=== PATIENT | female | born 1985 | race Caucasian/White ===

== ENCOUNTER 2023-06-26 07:47 | Outpatient (AMB) | payer OTHER, SELFPAY ==
[2023-06-26 08:09] VITALS: BP 110/72; PULSE 64; O2SAT 100; BMI 24.4
--- NOTE | 2023-06-26 08:09 | A.OFFPC_ITS ---
Vital Signs 06/26/23 08:09 Height 5 ft 4 in Weight 142 lb BMI 24.4 BP 110/72 Blood Pressure Location Rt brachial Position Sitting Pulse 64 Pulse Source Pulse Oximeter Pulse Oximetry (%) 100 Oxygen Delivery Method Room Air Intake Visit Reasons: Annual PE Intake Note: Pt is here for her Annual PE Pt is due for her Pap she has them done at [facility] [address] Is last menstrual period known: Yes Last menstrual period: 06/07/23 Allergies Blue #1 Dye Allergy (Unknown, Uncoded 06/26/23 08:23) rash lanolin Allergy (Unknown, Uncoded 06/26/23 08:23) rash Medication List - Last Reconciled 06/26/23 by Millie Gonzalez MD cetirizine (Zyrtec) 10 mg PO DAILY PRN cholecalciferol (vitamin D3) 50 mcg PO DAILY cranberry 500 mg PO BID docusate sodium (Colace) 100 mg PO DAILY levonorgestrel (Mirena) intrauterine linaclotide (Linzess) 290 mcg PO DAILY magnesium oxide 500 mg PO DAILY montelukast 10 mg PO DAILY Saccharomyces boulardii (Daily Probiotic (S. boulardii)) 250 mg PO BID Tobacco use date assessed: 06/26/23 Dental Screening Dental Screen Date: 06/26/23 Did you have a dental visit in the last 12 months?: Yes Did you have a dental problem in the last 6 months where you did not have access to dental care?: No Was dental information given to patient?: Patient has dentist HPI Annual PE HPI Details 38-year-old lady here today for physical exam. She gets her cervical cancer screening done at [facility], due again this year, and has an appointment already scheduled. She had a colonoscopy done in [address] Cooper due to chronic idiopathic constipation and was found to have a tubular adenoma, due for repeat check again in 2026. She started having her screening mammogram at age 34 due to family history of breast cancer, maternal aunt had it before age 50., gets her screening mammogram at [facility]. She is up-to-date with all her vaccinations except for day tetanus booster which she had in 2010. [facility] Medical History (Updated 06/26/23 @ 08:37 by Millie Gonzalez MD) History of adenomatous polyp of colon Irritable bowel syndrome with constipation Constipation Seasonal allergies Surgical History Hx of colonoscopy History of cystoscopy Hx of inguinal herniorrhaphy Family History Paternal Grandmother Breast cancer Paternal Aunt Breast cancer, Onset Age: 50 Maternal Aunt Breast cancer Social History Housing: House Patient Tobacco Use Status: Never used Tobacco e-Cigarette/Vaping Use: Never Used service: No Current occupational status: employed Cognitive needs: No Hearing needs: No Vision needs: No Female Reproductive History Menstrual Age of Menarche: 12 Date of last menstrual period: 06/07/23 Questionnaire PHQ-9 Over the last 2 weeks, how often have you been bothered by any of the following problems? 1. Little interest or pleasure in doing things: not at all 2. Feeling down, depressed, or hopeless: not at all 3. Trouble falling or staying asleep, or sleeping too much: not at all 4. Feeling tired or having little energy: several days 5. Poor appetite or overeating: not at all 6. Feeling bad about yourself - or that you are a failure or have let yourself or your family down: not at all 7. Trouble concentrating on things, such as reading the newspaper or watching television: not at all 8. Moving or speaking so slowly that other people could have noticed. Or the opposite - being so fidgety or restless that you have been moving around a lot more than usual: not at all 9. Thoughts that you would be better off or of hurting yourself in some way: not at all Total score: 1 Depression Screening Interpretation: Negative Depression Screening Done: Yes 20636 - PHQ-9 Billing: Yes Source: Developed by Drs. Zion Nickerson, Samantha Roberts, Dustin Heaton and colleagues, with an educational miguelangel from [employer]. Thrive Questionnaire Date Thrive assessed: 06/26/23 I am a: Patient What is your living situation today?: I have a steady place to live Within the past 12 months, did the food you bought not last and you didn't have the money to get more?: Never true Within the past 12 months, did you worry whether your food would run out before you got money to buy more?: Never true Do you have trouble paying for medicines?: No Do you have trouble getting transportation to medical appointments?: No Do you have trouble paying your heating and electricity bill?: No Do you have trouble taking care of your child, family member or friend?: No Do you have trouble with day-to-day activities such as bathing, preparing meals, shopping, managing finances, etc.?: No Are you currently unemployed and looking for a job?: No Are you interested in more education?: No AUDIT C Alcohol Use Questionnaire (AUDIT-C) 1. How often do you have a drink containing alcohol?: Monthly or less 2. How many drinks containing alcohol do you have on a typical day when you are drinking?: 1 or 2 3. How often do you have six or more drinks on one occasion?: Never Total Score: 1 ANTONI-7 AMB Questionnaire ANTONI-7 Date ANTONI - 7 assessed: 06/26/23 Feeling nervous, anxious, or on edge: 0 = Not at all Not being able to stop or control worryin = Not at all Worrying too much about different things: 0 = Not at all Trouble relaxin = Not at all Being so restless that it is hard to sit still: 0 = Not at all Becoming easily annoyed or irritable: 0 = Not at all Feeling afraid as if something awful might happen: 0 = Not at all Total ANTONI-7 score (0-4 normal; 5-9 mild; 10-14 moderate; 15-21 severe): 0 Source: Developed by Drs. Zion Nickerson, Samantha Roberts, Dustin Heaton and colleagues, with an educational miguelangel from [employer]. ANTONI-7 Assessment Billing ANTONI-7 Assessment Tool: ANTONI-7 Assessment 45788 Review of Systems Const Reports no additional complaints Eyes Details: My eye Dr FUNG this year ENT Reports no additional complaints Card Denies chest pain, Denies rapid heart rate, Denies irregular heart rhythm, Denies lightheadedness and Denies dyspnea Resp Denies cough and Denies dyspnea GI Reports as per HPI Details: Sees Dr. Kaba for her routine Pap and pelvic exam as well as for her screening mammogram Reports no additional complaints Musc Reports no additional complaints Skin/Breast Denies breast pain, Denies breast mass, Denies lesions and Denies rash Neuro Reports no additional complaints Psych Reports no additional complaints Endo Reports no additional complaints Hayden/Lymph Reports no additional complaints Aller/Immun Reports seasonal rhinorrhea Physical exam (Primary Care) Vital Signs: Last Vital Signs Pulse 64 06/26/23 08:09 BP 110/72 06/26/23 08:09 Pulse Ox 100 06/26/23 08:09 Oxygen Delivery Method Room Air 06/26/23 08:09 BMI result Body Mass Index 24.4 Tobacco/Smoking Status: Tobacco use Status Tobacco use date assessed 06/26/23 06/26/23 08:17 Patient Tobacco Use Status Never used Tobacco 06/26/23 08:10 e-Cigarette/Vaping Use Never Used 06/26/23 08:10 Depression Screening Interpretation: Negative Thrive Assessment: Date of Thrive Assessment Date Thrive assessed 09/19/21 06/26/23 08:10 Const Other: Alert oriented x3 no acute distress noted, ambulatory normal gait Nutritional Appearance: average body habitus Orientation/consciousness: patient oriented x3 HENMT Mouth: Normal oral and palatal mucosa present, tongue normal, oropharynx normal and moist mucous membranes Neck Neck: Yes full ROM, Yes no lymphadenopathy and Yes supple Thyroid: Thyroid normal Chest Breast/axilla palpation: normal palpation of the breasts Resp Auscultation: clear to auscultation bilaterally Cardio Rate: regular rate Rhythm: regular rhythm Heart sounds: S1 normal heart sound present and S2 normal heart sound present GI Inspection: Yes normal to inspection Palpation (GI): Soft to palpation, nontender, no guarding and no masses Auscultation: normal bowel sounds Other: UTD with her pap , sees [facility] General: Yes deferred Back/Spine/Pelvis Back: No back tenderness Skin Other: sees Dr Mascorro for routine skin exam General skin exam: no rashes or lesions noted Neuro General: patient oriented x3, gait normal, tone normal, moves all extremities, Normal light touch and pain sensation, no focal motor deficits and CN's II-XI intact bilaterally Extrem General: Yes full ROM, Yes no joint enlargement, Yes no clubbing, cyanosis or edema and Yes normal gait Psych Appearance: grossly normal and well kempt Mental Status: mental status grossly normal Speech and movement: Normal speech and movement present Affect: normal affect Attitude: cooperative Assessment and Plan Assessment & Plan (1) Irritable bowel syndrome with constipation: Code(s): K58.1 - Irritable bowel syndrome with constipation Plan: Currently on Linzess, followed by Dr. Ferraro (2) Seasonal allergies: Code(s): J30.2 - Other seasonal allergic rhinitis Plan: Takes cetirizine as needed (3) History of adenomatous polyp of colon: Code(s): Z86.010 - Personal history of colonic polyps Plan: Followed by Dr. Ferraro, due again in 2026 (4) Annual visit for general adult medical examination with abnormal findings: Code(s): Z00.01 - Encounter for general adult medical examination with abnormal findings Plan: Will check appropriate labs. Continue regular dental visit every 6 months and regular eye exams, at least every 2 years. Take adequate calcium in diet and vitamin-D 3 at 2000 IU per cap once a day, in addition to weight-bearing exercises to help maintain good muscle tone and weight control. Continue doing self-breast exam, and continue with yearly mammogram she. She is up-to-date with all her vaccinations, but due for her repeat tetanus booster. Patient already had a colonoscopy done in [address] Cooper which showed presence of a tubular adenoma, due for repeat check again in 2026. (5) Chronic fatigue: Code(s): R53.82 - Chronic fatigue, unspecified Plan: Will check TSH, CBC and a vitamin B12 and vitamin-D level Orders: Orders Vitamin D 25-OH Total Today J30.2 - Other seasonal allergic rhinitis, K58.1 - Irritable bowel syndrome with constipation, R53.82 - Chronic fatigue, unspecified, Z00.01 - Encounter for general adult medical examination with abnormal findings, Z86.010 - Personal history of colonic polyps Vitamin B12 and Folate Today J30.2 - Other seasonal allergic rhinitis, K58.1 - Irritable bowel syndrome with constipation, R53.82 - Chronic fatigue, unspecified, Z00.01 - Encounter for general adult medical examination with abnormal findings, Z86.010 - Personal history of colonic polyps TSH reflex Free T4 Today J30.2 - Other seasonal allergic rhinitis, K58.1 - Irritable bowel syndrome with constipation, R53.82 - Chronic fatigue, unspecified, Z00.01 - Encounter for general adult medical examination with abnormal findings, Z86.010 - Personal history of colonic polyps Hemoglobin and Hematocrit Today J30.2 - Other seasonal allergic rhinitis, K58.1 - Irritable bowel syndrome with constipation, R53.82 - Chronic fatigue, unspecified, Z00.01 - Encounter for general adult medical examination with abnormal findings, Z86.010 - Personal history of colonic polyps Lipid Panel Today J30.2 - Other seasonal allergic rhinitis, K58.1 - Irritable bowel syndrome with constipation, R53.82 - Chronic fatigue, unspecified, Z00.01 - Encounter for general adult medical examination with abnormal findings, Z86.010 - Personal history of colonic polyps Basic Metabolic Panel Fasting Today J30.2 - Other seasonal allergic rhinitis, K58.1 - Irritable bowel syndrome with constipation, R53.82 - Chronic fatigue, unspecified, Z00.01 - Encounter for general adult medical examination with abnormal findings, Z86.010 - Personal history of colonic polyps Alanine Aminotransferase Today J30.2 - Other seasonal allergic rhinitis, K58.1 - Irritable bowel syndrome with constipation, R53.82 - Chronic fatigue, unspecified, Z00.01 - Encounter for general adult medical examination with abnormal findings, Z86.010 - Personal history of colonic polyps Aspartate Amino Transferase Today J30.2 - Other seasonal allergic rhinitis, K58.1 - Irritable bowel syndrome with constipation, R53.82 - Chronic fatigue, unspecified, Z00.01 - Encounter for general adult medical examination with abnormal findings, Z86.010 - Personal history of colonic polyps Coding Level of Care Code Est Pt Prev Care 18-39y(14304) Diagnoses Irritable bowel syndrome with constipation K58.1 Seasonal allergies J30.2 History of adenomatous polyp of colon Z86.010 Annual visit for general adult medical examination with abnormal findings Z00.01 Chronic fatigue R53.82 Additional Codes ANTONI-7 Assessment Billing - ANTONI-7 Assessment Tool: NATONI-7 Assessment [id number] ([id number])
== END 2023-06-26 15:54 | disposition home or self-care (01) ==
PROVIDERS: Visit Provider Internal Medicine
DX: Z00.00 Encounter for general adult medical examination without abnormal findings (principal); K58.1 Irritable bowel syndrome with constipation; J30.2 Other seasonal allergic rhinitis; Z86.010 Personal history of colon polyps; R53.82 Chronic fatigue, unspecified
CPT/HCPCS: 99395

== ENCOUNTER 2024-03-11 11:22 | Outpatient (AMB) | payer OTHER, SELFPAY ==
--- NOTE | 2024-03-11 11:55 | MHC.PC.OV ---
Vital Signs 03/11/24 11:56 Height 5 ft 4 in Weight 143 lb 6 oz BMI 24.6 BP 115/70 Blood Pressure Location Rt brachial Position Sitting Pulse 85 Pulse Source Pulse Oximeter Pulse Oximetry (%) 99 Oxygen Delivery Method Room Air Intake Visit Reasons: Meds review Allergies Blue #1 Dye Allergy (Unknown, Uncoded 03/11/24 12:21) rash lanolin Allergy (Unknown, Uncoded 03/11/24 12:21) rash Medication List - Last Reconciled 03/11/24 by Millie Gonzalez MD cetirizine (Zyrtec) 10 mg PO DAILY PRN cholecalciferol (vitamin D3) 50 mcg PO DAILY cranberry 500 mg PO BID docusate sodium (Colace) 100 mg PO DAILY levonorgestrel (Mirena) intrauterine linaclotide (Linzess) 290 mcg PO DAILY magnesium oxide 500 mg PO DAILY montelukast 10 mg PO DAILY Saccharomyces boulardii (Daily Probiotic (S. boulardii)) 250 mg PO BID Tobacco use date assessed: 03/11/24 Dental Screening Dental Screen Date: 03/11/24 Did you have a dental visit in the last 12 months?: Yes Did you have a dental problem in the last 6 months where you did not have access to dental care?: No Was dental information given to patient?: Patient has dentist HPI Meds review HPI Details 39-year-old lady with history significant for environmental and seasonal allergies currently on montelukast, here today for follow-up. She has tried not taking montelukast on a regular basis but allergy started flaring up. [facility] Medical History (Updated 03/11/24 @ 12:22 by Millie Gonzalez MD) Environmental and seasonal allergies History of adenomatous polyp of colon Irritable bowel syndrome with constipation Constipation Surgical History Hx of colonoscopy History of cystoscopy Hx of inguinal herniorrhaphy Family History Paternal Grandmother Breast cancer Paternal Aunt Breast cancer, Onset Age: 50 Maternal Aunt Breast cancer Social History Housing: House Patient Tobacco Use Status: Never used Tobacco e-Cigarette/Vaping Use: Never Used service: No Current occupational status: employed Cognitive needs: No Hearing needs: No Vision needs: No Female Reproductive History Menstrual Age of Menarche: 12 Questionnaire PHQ-9 Over the last 2 weeks, how often have you been bothered by any of the following problems? 1. Little interest or pleasure in doing things: not at all 2. Feeling down, depressed, or hopeless: not at all 3. Trouble falling or staying asleep, or sleeping too much: not at all 4. Feeling tired or having little energy: not at all 5. Poor appetite or overeating: not at all 6. Feeling bad about yourself - or that you are a failure or have let yourself or your family down: not at all 7. Trouble concentrating on things, such as reading the newspaper or watching television: not at all 8. Moving or speaking so slowly that other people could have noticed. Or the opposite - being so fidgety or restless that you have been moving around a lot more than usual: not at all 9. Thoughts that you would be better off or of hurting yourself in some way: not at all Total score: 0 Depression Screening Interpretation: Negative Depression Screening Done: Yes 56972 - PHQ-9 Billing: Yes Source: Developed by Drs. Zion Nickerson, Samantha Roberts, Dustin Heaton and colleagues, with an educational miguelangel from [employer]. Thrive Questionnaire Date Thrive assessed: 03/11/24 I am a: Patient What is your living situation today?: I have a steady place to live Within the past 12 months, did the food you bought not last and you didn't have the money to get more?: Never true Within the past 12 months, did you worry whether your food would run out before you got money to buy more?: Never true Do you have trouble paying for medicines?: No Do you have trouble getting transportation to medical appointments?: No Do you have trouble paying your heating and electricity bill?: No Do you have trouble taking care of your child, family member or friend?: No Do you have trouble with day-to-day activities such as bathing, preparing meals, shopping, managing finances, etc.?: No Are you currently unemployed and looking for a job?: No Are you interested in more education?: No Please select the resources that you would like help with: None Currently or been in a relationship where the following occur: No concerns reported THRIVE Score: 0 AUDIT C Alcohol Use Questionnaire (AUDIT-C) 1. How often do you have a drink containing alcohol?: Never 3. How often do you have six or more drinks on one occasion?: Never Total Score: 0 ANTONI-7 AMB Questionnaire ANTONI-7 Date ANTONI - 7 assessed: 03/11/24 Feeling nervous, anxious, or on edge: 0 = Not at all Not being able to stop or control worryin = Not at all Worrying too much about different things: 0 = Not at all Trouble relaxin = Not at all Being so restless that it is hard to sit still: 0 = Not at all Becoming easily annoyed or irritable: 0 = Not at all Feeling afraid as if something awful might happen: 0 = Not at all Total ANTONI-7 score (0-4 normal; 5-9 mild; 10-14 moderate; 15-21 severe): 0 Source: Developed by Drs. Zion Nickerson, Samantha Roberts, Dustin Heaton and colleagues, with an educational miguelangel from [employer]. ANTONI-7 Assessment Billing ANTONI-7 Assessment Tool: ANTONI-7 Assessment 35553 Review of Systems Const All systems reviewed & are unremarkable except as noted in HPI and below Physical exam (Primary Care) Vital Signs: Last Vital Signs Pulse 85 03/11/24 11:56 BP 115/70 03/11/24 11:56 Pulse Ox 99 03/11/24 11:56 Oxygen Delivery Method Room Air 03/11/24 11:56 BMI result Body Mass Index 24.6 Tobacco/Smoking Status: Tobacco use Status Tobacco use date assessed 03/11/24 03/11/24 11:59 Patient Tobacco Use Status Never used Tobacco 03/11/24 11:59 e-Cigarette/Vaping Use Never Used 03/11/24 11:59 PHQ-9: PHQ-9 Score PHQ-9: Total score 0 03/11/24 12:23 Depression Screening Interpretation: Negative Thrive Assessment: Date of Thrive Assessment Date Thrive assessed 06/26/23 03/11/24 11:59 Currently or been in a relationship where the following occur: No concerns reported Const Other: Alert oriented x3 no acute distress noted, ambulatory normal gait Nutritional Appearance: average body habitus HENMT Head: Yes normocephalic Ears: external ears normal, TM's normal bilaterally and EAC's normal General nose exam: Normal external nose present, Normal nares present and No nasal discharge present Face and sinus: Yes sinuses nontender and Yes face symmetric Mouth: Normal oral and palatal mucosa present, tongue normal, oropharynx normal and moist mucous membranes Eyes General: appearance normal, both eyes and all related structures Neck Neck: Yes full ROM, Yes no lymphadenopathy and Yes supple Thyroid: Thyroid normal Chest Breast/axilla palpation: normal palpation of the breasts Resp Auscultation: clear to auscultation bilaterally Cardio Rate: regular rate Rhythm: regular rhythm Heart sounds: S1 normal heart sound present and S2 normal heart sound present Skin Other: sees Dr Mascorro for routine skin exam General skin exam: no rashes or lesions noted Assessment and Plan Assessment & Plan (1) Environmental and seasonal allergies: Code(s): J30.89 - Other allergic rhinitis Medications: Refilled montelukast 10 mg PO DAILY 90 tabs 4RF Coding Level of Care Code Est Pt Level 3 (78954) Diagnoses Environmental and seasonal allergies J30.89 Additional Codes ANTONI-7 Assessment Billing - ANTONI-7 Assessment Tool: ANTONI-7 Assessment [id number] ([id number])
[2024-03-11 11:56] VITALS: BP 115/70; PULSE 85; O2SAT 99; BMI 24.6
== END 2024-03-11 12:58 | disposition home or self-care (01) ==
PROVIDERS: PCP Internal Medicine; Visit Provider Internal Medicine
DX: J30.89 Other allergic rhinitis (principal)
CPT/HCPCS: 99213

== ENCOUNTER 2024-07-06 08:07 | Outpatient (AMB) | payer OTHER, SELFPAY ==
--- NOTE | 2024-07-06 08:38 | MHC.PC.OV ---
Vital Signs 07/06/24 08:39 Height 5 ft 4 in Weight 139 lb BMI 23.9 BP 100/62 Blood Pressure Location Rt brachial Position Sitting Pulse 79 Pulse Source Pulse Oximeter Pulse Oximetry (%) 100 Oxygen Delivery Method Room Air Intake Visit Reasons: Physical Intake Note: Pt is here today for her PE: Last mammogram 01/27/24 Allergies Blue #1 Dye Allergy (Unknown, Uncoded 07/06/24 09:15) rash lanolin Allergy (Unknown, Uncoded 07/06/24 09:15) rash Medication List - Last Reconciled 07/06/24 by Millie Gonzalez MD cetirizine (Zyrtec) 10 mg PO DAILY PRN cholecalciferol (vitamin D3) 50 mcg PO DAILY cranberry 500 mg PO BID docusate sodium (Colace) 100 mg PO DAILY levonorgestrel (Mirena) intrauterine linaclotide (Linzess) 290 mcg PO DAILY magnesium oxide 500 mg PO DAILY montelukast 10 mg PO DAILY Saccharomyces boulardii (Daily Probiotic (S. boulardii)) 250 mg PO BID vibegron (Gemtesa) 75 mg PO DAILY Tobacco use date assessed: 07/06/24 Dental Screening Dental Screen Date: 07/06/24 Did you have a dental visit in the last 12 months?: Yes Did you have a dental problem in the last 6 months where you did not have access to dental care?: No Was dental information given to patient?: Patient has dentist HPI Physical HPI Details - The patient is a 39 year old female with history of IBS with constipation, allergic rhinitis, and history of adenomatous polyp on colonoscopy done in [address] Ferraro, presenting today for her physical exam - Recently evaluated for dry eye syndrome with symptoms exacerbated after a cold. currently goes to [facility] and prescribed Refresh eyedrops without preservatives which has been helping - Significant family history of breast cancer, sister maternal aunt were diagnosed before age 50, as per patient genetic testing was done which came back negative - Mammogram normal done January 2024; last Pap smear conducted August 19, [address] Kaba, negative for malignancy and HPV. - Colonoscopy in 2021 revealed serrated polyps, follow-up scheduled for [address] Ferraro. - Up-to-date vaccinations, including Hepatitis B series, COVID-19 booster, and influenza vaccine received March 22, 2024. - History of Tdap in 2010; due for tetanus-diphtheria booster. - Recommended routine checks of folic acid and vitamin D; no indications of anemia; previous hemoglobin level 13 on previous folic acid levels were elevated PFSH Medical History Dry eye syndrome Environmental and seasonal allergies History of adenomatous polyp of colon Irritable bowel syndrome with constipation Constipation Surgical History Hx of colonoscopy History of cystoscopy Hx of inguinal herniorrhaphy Family History (Updated 07/06/24 @ 09:14 by Millie Gonzalez MD) Paternal Grandmother Breast cancer Paternal Aunt Breast cancer, Onset Age: 50 Maternal Aunt Breast cancer Sister Breast cancer, Onset Age: 31 Social History Housing: House Patient Tobacco Use Status: Never used Tobacco e-Cigarette/Vaping Use: Never Used service: No Current occupational status: employed Cognitive needs: No Hearing needs: No Vision needs: Yes Female Reproductive History Menstrual Age of Menarche: 12 control method: progestin IUCD Date of last pap smear: 08/30/23 Date of Mammogram: 01/27/24 Other: Sees Dr. Johnathan Summers for routine Pap and pelvic exam Questionnaire Thrive Questionnaire Date Thrive assessed: 03/11/24 I am a: Patient What is your living situation today?: I have a steady place to live Within the past 12 months, did the food you bought not last and you didn't have the money to get more?: Never true Within the past 12 months, did you worry whether your food would run out before you got money to buy more?: Never true Do you have trouble paying for medicines?: No Do you have trouble getting transportation to medical appointments?: No Do you have trouble paying your heating and electricity bill?: No Do you have trouble taking care of your child, family member or friend?: No Do you have trouble with day-to-day activities such as bathing, preparing meals, shopping, managing finances, etc.?: No Are you currently unemployed and looking for a job?: No Are you interested in more education?: No Please select the resources that you would like help with: None Currently or been in a relationship where the following occur: No concerns reported THRIVE Score: 0 ANTONI-7 AMB Questionnaire ANTONI-7 Date ANTONI - 7 assessed: 03/11/24 Source: Developed by Drs. Zion Nickerson, Samantha Roberts, Dustin Heaton and colleagues, with an educational miguelangel from [email or web address]. Review of Systems Const Reports no additional complaints and Reports weight loss Eyes Details: Goes to [facility] ENT Reports no additional complaints Card Denies chest pain, Denies rapid heart rate, Denies irregular heart rhythm, Denies lightheadedness and Denies dyspnea Resp Denies cough and Denies dyspnea GI Reports as per HPI Details: Sees Dr. Kaba for her routine Pap and pelvic exam as well as for her screening mammogram Reports no additional complaints Musc Reports no additional complaints Skin/Breast Denies breast pain, Denies breast mass, Denies lesions and Denies rash Neuro Reports no additional complaints Psych Reports no additional complaints Endo Reports no additional complaints Hayden/Lymph Reports no additional complaints Aller/Immun Reports seasonal rhinorrhea Physical exam (Primary Care) Vital Signs: Last Vital Signs Pulse 79 07/06/24 08:39 BP 100/62 07/06/24 08:39 Pulse Ox 100 07/06/24 08:39 Oxygen Delivery Method Room Air 07/06/24 08:39 BMI result Body Mass Index 23.9 Tobacco/Smoking Status: Tobacco use Status Tobacco use date assessed 07/06/24 07/06/24 08:42 Patient Tobacco Use Status Never used Tobacco 07/06/24 08:39 e-Cigarette/Vaping Use Never Used 07/06/24 08:39 Thrive Assessment: Date of Thrive Assessment Date Thrive assessed 03/11/24 07/06/24 08:39 Currently or been in a relationship where the following occur: No concerns reported Const Other: Alert oriented x3 no acute distress noted, ambulatory normal gait Nutritional Appearance: average body habitus Orientation/consciousness: patient oriented x3 HENMT Head: Yes normocephalic Ears: external ears normal, TM's normal bilaterally and EAC's normal General nose exam: Normal external nose present and Normal nares present Face and sinus: Yes face symmetric Mouth: Normal oral and palatal mucosa present, tongue normal, oropharynx normal and moist mucous membranes Eyes General: appearance normal, both eyes and all related structures Neck Neck: Yes full ROM, Yes no lymphadenopathy, Yes no meningeal signs and Yes supple Thyroid: Thyroid normal Chest Breast/axilla palpation: normal palpation of the breasts Resp Auscultation: clear to auscultation bilaterally Cardio Rate: regular rate Rhythm: regular rhythm Heart sounds: S1 normal heart sound present and S2 normal heart sound present Bruits: no abdominal aortic bruits GI Inspection: Yes normal to inspection Palpation (GI): No Abdominal aortic bruit present, Soft to palpation, nontender, no guarding, no hernias and no masses Auscultation: normal bowel sounds Other: Currently followed by Dr. Kaba for her routine Pap and pelvic exam, up-to-date General: Yes no CVA tenderness Back/Spine/Pelvis Back: no CVA tenderness and No back tenderness Skin Other: sees Dr Mascorro for routine skin exam General skin exam: no rashes or lesions noted Neuro General: patient oriented x3, gait normal, tone normal, moves all extremities, Normal light touch and pain sensation, no meningeal signs, no focal motor deficits and CN's II-XI intact bilaterally Gait exam (Neuro): Normal gait present Extrem General: Yes full ROM, Yes no joint enlargement, Yes no clubbing, cyanosis or edema, Yes no calf tenderness and Yes normal gait Psych Appearance: grossly normal and well kempt Mental Status: mental status grossly normal Speech and movement: Normal speech and movement present Affect: normal affect Thought process: Normal thought process present Coding Level of Care Code Est Pt Prev Care 40-64y(59170) Diagnoses Annual visit for general adult medical examination with abnormal findings Z. Irritable bowel syndrome with constipation K58.1 Constipation K59.00 History of adenomatous polyp of colon Z86.010 Environmental and seasonal allergies J30.89 Advanced directives, counseling/discussion Z71.89 Dry eye syndrome of both eyes H04.123 Laterality: bilateral Assessment & Plan Assessment & Plan (1) Annual visit for general adult medical examination with abnormal findings: Code(s): Z00. - Encounter for general adult medical examination with abnormal findings Plan: Will check appropriate labs. Continue regular dental visit every 6 months and regular eye exams, goes to [facility]. Continue taking adequate calcium from dietary sources and at least 2000 units of daily vitamin-D supplement. Continue regular weight-bearing exercise. Continue to do self-breast exam, and yearly mammogram, currently up-to-date goes to [facility], with last mammogram done 01/2024 within normal. She goes to Dr. Doni Kaba for her routine Pap and pelvic exam, last done earlier this year with negative findings. She is up-to-date with all her vaccines but is due for her tetanus booster which she can get at the pharmacy. Up-to-date with her screening colonoscopy with serrated polyp removed, due for recheck in [address] Ferraro (2) Irritable bowel syndrome with constipation: Code(s): K58.1 - Irritable bowel syndrome with constipation Category: Medical Plan: Currently taking Linzess, magnesium oxide and Colace (3) Constipation: Code(s): K59.00 - Constipation, unspecified Category: Medical Plan: Currently taking Colace, Linzess and magnesium oxide has been helping regulate her bowel movement (4) History of adenomatous polyp of colon: Code(s): Z86.010 - Personal history of colon polyps Category: Medical Plan: Repeat colonoscopy due again in 2026, done by Dr. Ferraro (5) Environmental and seasonal allergies: Code(s): J30.89 - Other allergic rhinitis Category: Medical Plan: takes cetirizine 10 mg once a day as needed (6) Advanced directives, counseling/discussion: Code(s): Z71.89 - Other specified counseling Plan: Initiated the conversation about Advanced Directives. Advanced Directives help patients prepare for current and future decisions about their medical treatment and place of care. Discussed with patient that it is a process where a patients current condition and prognosis are reviewed, their wishes for information regarding their illness are elicited, and likely medical dilemmas are presented and options discussed. Healthcare proxy form completed today. The form can be amended as needed, reviewed yearly and make changes as needed (7) Dry eye syndrome: Code(s): H04.129 - Dry eye syndrome of unspecified lacrimal gland Category: Medical Qualifiers: Laterality: bilateral Qualified Code(s): H04.123 - Dry eye syndrome of bilateral lacrimal glands Plan: Followed at [facility], uses refresh eyedrops without preservatives Orders: Orders Lipid Panel 07/06/24 J30.89 - Other allergic rhinitis, K58.1 - Irritable bowel syndrome with constipation, K59.00 - Constipation, unspecified, Z00.01 - Encounter for general adult medical examination with abnormal findings, Z71.89 - Other specified counseling, Z86.010 - Personal history of colon polyps Alanine Aminotransferase 07/06/24 J30.89 - Other allergic rhinitis, K58.1 - Irritable bowel syndrome with constipation, K59.00 - Constipation, unspecified, Z00.01 - Encounter for general adult medical examination with abnormal findings, Z71.89 - Other specified counseling, Z86.010 - Personal history of colon polyps Vitamin D 25-OH Total 07/06/24 J30.89 - Other allergic rhinitis, K58.1 - Irritable bowel syndrome with constipation, K59.00 - Constipation, unspecified, Z00.01 - Encounter for general adult medical examination with abnormal findings, Z71.89 - Other specified counseling, Z86.010 - Personal history of colon polyps Aspartate Amino Transferase 07/06/24 J30.89 - Other allergic rhinitis, K58.1 - Irritable bowel syndrome with constipation, K59.00 - Constipation, unspecified, Z00.01 - Encounter for general adult medical examination with abnormal findings, Z71.89 - Other specified counseling, Z86.010 - Personal history of colon polyps Basic Metabolic Panel Fasting 07/06/24 J30.89 - Other allergic rhinitis, K58.1 - Irritable bowel syndrome with constipation, K59.00 - Constipation, unspecified, Z00.01 - Encounter for general adult medical examination with abnormal findings, Z71.89 - Other specified counseling, Z86.010 - Personal history of colon polyps Vitamin B12 and Folate 07/06/24 J30.89 - Other allergic rhinitis, K58.1 - Irritable bowel syndrome with constipation, K59.00 - Constipation, unspecified, Z00.01 - Encounter for general adult medical examination with abnormal findings, Z71.89 - Other specified counseling, Z86.010 - Personal history of colon polyps
[2024-07-06 08:39] VITALS: BP 100/62; PULSE 79; O2SAT 100; BMI 23.9
== END 2024-07-06 09:10 | disposition home or self-care (01) ==
PROVIDERS: PCP Internal Medicine; Visit Provider Internal Medicine
DX: Z00.01 Encounter for general adult medical examination with abnormal findings (principal); K58.1 Irritable bowel syndrome with constipation; K59.00 Constipation, unspecified; Z86.0100 Personal history of colon polyps, unspecified; J30.89 Other allergic rhinitis; Z71.89 Other specified counseling; H04.123 Dry eye syndrome of bilateral lacrimal glands

== ENCOUNTER 2024-10-15 | Outpatient (REF) | payer OTHER, SELFPAY ==
--- OUTSIDE RECORDS SUMMARY | 2025-01-01 12:42 | XMS_ITS | Encounter Summary ---
[facility] Address [address] [place] [address] Care Team Providers Care Transfer Controller Name Role Phone Millie Gonzalez MD Primary Care Provider [phone] Encounter Details Date Type Department Care Team (Late st Contact Info) Description 09/03/2024 Lab Requisition [facility] - Main Lab [address] [facility] [employer] [place] [id number] Millie Gonzalez MD [address] [place] [address] Irritable bowel syndrome with constipation; Constipation, unspecified; [...] Hold for add-ons. 09/03/2024 9:01 AM EST [facility] Comment:Auto resulted. Blood Venous blood specimen / Unknown 09/03/2024 7:00 AM EST 09/03/2024 7:27 AM EST us Millie Gonzalez MD LAB BLOOD ORDERABLES Final Result [facility] [address] [place] [address], [place] [phone] * Vitamin D 25 hydroxy (09/03/2024 7:00 AM EST) [facility] Vit D, 25-Hydroxy 34.8 30.0 - 80.0 ng/mL LAB CHEMISTRY METHOD 09/03/2024 9:[address] [facility] Blood Venous blood specimen / Unknown 09/03/2024 7:00 AM EST 09/03/2024 7:27 AM EST us Millie Gonzalez MD LAB BLOOD ORDERABLES Final Result [facility] [address] [place] [address], [place] [phone] * Vitamin B12 and folate (09/03/2024 7:00 AM EST) [facility] Vitamin B-12 575 250 - 900 pcg/mL LAB CHEMISTRY METHOD 09/03/2024 8:[address] [facility] Folate 9.7 2.8 - 17.0 ng/ml LAB CHEMISTRY METHOD 09/03/2024 8:[address] [facility] Blood Venous blood specimen / Unknown 09/03/2024 7:00 AM EST 09/03/2024 7:27 AM EST us Millie Gonzalez MD LAB BLOOD ORDERABLES Final Result [facility] [address] [place] [address], [place] [phone] * Lipid panel with reflex to direct LDL (09/03/2024 7:00 AM EST) [facility] Cholesterol 168 0 - 200 mg/dL LAB CHEMISTRY METHOD 09/03/2024 8:[address] [facility] Triglycerides 54 0 - 150 [...] Gonzalez MD LAB BLOOD ORDERABLES Final Result [facility] [address] [place] [address], [place] [phone] * Aspartate aminotransferase (09/03/2024 7:00 AM EST) AST (SGOT) 12 10 - 42 unit/L LAB CHEMISTRY METHOD 09/03/2024 8:11 AM [facility] Blood Venous blood specimen / Unknown 09/03/2024 7:00 AM EST 09/03/2024 7:27 AM EST us Millie Gonzalez MD LAB BLOOD ORDERABLES Final Result [facility] [address] [place] [address], [place] [phone] * Basic metabolic panel (09/03/2024 7:00 AM [...] [facility] Comment:Calculation based on the Chronic Kidney Disease Epidemiology Collaboration (CKD-EPI) equation refit without adjustment for race. BUN/Creatinine Ratio 26.2 LAB CHEMISTRY METHOD 09/03/2024 8:11 AM [facility] Calcium 9.2 8.5 - 10.5 mg/dL LAB CHEMISTRY METHOD 09/03/2024 8:11 AM [facility] Blood Venous blood specimen / Unknown 09/03/2024 7:00 AM EST 09/03/2024 7:27 AM EST us Millie Gonzalez MD LAB BLOOD ORDERABLES Final Result [facility] [address] [place] [address], [place] [phone] * Alanine aminotransferase (09/03/2024 7:00 AM EST) ALT (SGPT) 18 10 - 60 unit/L LAB CHEMISTRY METHOD 09/03/2024 8:[address] [facility] Blood Venous blood specimen / Unknown 09/03/2024 7:00 AM EST 09/03/2024 7:27 AM EST us Millie Gonzalez MD LAB BLOOD ORDERABLES Final Result [facility] [address] [place] [address], [place] [phone] documented in this encounter Visit Diagnoses Diagnosis Irritable bowel syndrome with constipation Irritable bowel syndrome Constipation, unspecified Personal history of colon polyps, unspecified Other allergic rhinitis Other specified counseling Encounter for general adult medical examination with abnormal findings documented in this encounter Care Teams Transfer Controller Relationship Specialty Start Date End Date Millie Gonzalez MD [address] [place] [address] PCP - General Internal Medicine 09/03/24 documented as of this encounter
== END 2024-10-15 00:01 | disposition home or self-care (01) ==
LOC: CF
PROVIDERS: Visit Provider Internal Medicine
DX: G45.3 Amaurosis fugax (principal); R42 Dizziness and giddiness
CPT/HCPCS: 96127

== ENCOUNTER 2024-10-15 07:58 | Outpatient (AMB) | payer OTHER, SELFPAY ==
--- OUTSIDE RECORDS SUMMARY | 2024-10-15 08:02 | XMS_ITS | Clinical Summary ---
Author Organization [address] Address [address] [place] [phone] Phone Care Team Providers Care Pumping Supervisor Name Role Phone Millie Gonzalez MD Primary Care Provider [phone] Allergies Active Allergy Reactions Criticality Noted Date Comments Blue Dye 09/29/2024 Lanolin 09/29/2024 Medications cetirizine (ZyrTEC) 10 mg tablet Take 1 tablet (10 mg total) by mouth. 5 Active montelukast (SINGULAIR) 10 mg tablet Take 1 tablet (10 mg total) by mouth 1 (one) time each day. Active vitamin D3-vitamin K2 1,250-200 mcg capsule Take by mouth. 0 Active lubiprostone (AMITIZA) 24 mcg capsuleIndication s:Irritable bowel syndrome with constipation Take 1 capsule (24 mcg total) by mouth 2 (two) times a day with meals. Take with meals 60 each 11 5 09/30/19 26 Active Linzess 290 mcg capsule take 1 capsule by mouth once a day take 1 capsule by mouth every day 5 09/30/19 25 Discontinu ed(Ineffec tive) Active Problems Problem Noted Date Diagnosed Date Irritable bowel syndrome with constipation 09/29 Assessment & Plan (09/29/2024 12:40 PM EDT): Somewhat controlled with Linzess. Discussed constipation and medications available for treatment. Patient would like to try another option. My second line is typically Trulance, however it does not appear the patient's insurance covers this option. Opting for Amitiza 24mcg BID instead as this is covered. Trial for 1-2 weeks, if no improvement, recommended patient restart Linzess. Advised to switch magnesium supplement from mag oxide to mag citrate for strong GI side effects. Orders: lubiprostone (AMITIZA) 24 mcg capsule; Take 1 capsule (24 mcg total) by mouth 2 (two) times a day with meals. Take with meals Allergic rhinitis 09/29/2024 Encounters Date Type Department Care Team Description 09/29/2024 8:00 AM EDT Office Visit Gastroenterology - [address] [address] Lucrecia Medina PA Irritable bowel syndrome with constipation (Primary Dx) 09/29/2024 Telephone Gastroenterology - [address] [address] Elinor Tabares [place] 09/03/2024 Lab Requisition [facility] - Main Lab 299 [facility] [place] [address] Millie Gonzalez MD Irritable bowel syndrome with constipation; Constipation, unspecified; Personal history of colon polyps, unspecified; Other allergic rhinitis; Other specified counseling; Encounter for general adult medical examination with abnormal findings from Last 3 Months Surgical History Surgery Date Site/Laterality Comments HERNIA REPAIR at age 3 COLONOSCOPY 03/22/2022 SSx1 recall 5 yrs Medical History Medical History Date Comments Colon polyp Mar 2022 Family History Medical History Relation Name Comments Colon polyps Maternal Grandfather Grandfather Crohn's disease Maternal Grandfather Grandfather Celiac disease Paternal Grandmother Great grandfather Colon cancer Paternal Grandmother Great grandfather Irritable bowel syndrome Sister Sister Relation Name Status Comments Maternal Grandfather Grandfather Paternal Grandmother Great grandfather Sister Sister Social History Tobacco Use Types Packs/Day Years Used Date Smoking Tobacco: Never Smokeless Tobacco: Never Alcohol Use Standard Drinks/Week Comments Never 0 (1 standard drink = 0.6 oz pur e alcohol) Comments Unknown Sex and Gender Information Value Date Recorded Sex Assigned at Not on file Legal Sex Female 6:42 PM EST Gender Identity Not on file Sexual Orientation Not on file Obstetrics History Last Filed Vital Signs Vital Sign Reading Time Taken Comments Blood Pressure - - Pulse - - Temperature - - Respiratory Rate - - Oxygen Saturation - - Inhaled Oxygen Concentration - - Weight 64.9 kg (143 lb) 09/29/2024 7:57 AM EDT Height 165.1 cm (5' 5 ) 09/29/2024 7:57 AM EDT Body Mass Index 23.8 09/29/2024 7:57 AM EDT Plan of Treatment Health Maintenance Due Date Last Done Comments Hepatitis B Vaccines (1 of 3 - 19+ 3-dose series) 01/18/2003 Cervical Cancer Screening: Pap Smear 01/18/2005 DTaP,Tdap,and Td Vaccines (2 - Td or Tdap) 04/18/2016 04/18/2006 Depression Screening 06/09/2022 HIV Screening 06/09/2022 Hepatitis C Screening 06/09/2022 Social Influencers of Health Screening 06/09/2022 Breast Cancer Screening 01/26/2026 01/27/2024 Cholesterol Screening (Lipid Panel) 09/03/2029 09/03/2024 COVID-19 Vaccine Completed 03/21/2024, , 04/06/2022, Additional history exists Influenza Vaccine Completed 03/21/2024, , 03/30/2019, Additional history exists HIB Vaccines Aged Out No longer eligi ble based on patient's age to complete this topic HPV Vaccines Aged Out No longer eligi ble based on patient's age to complete this topic Hepatitis A Vaccines Aged Out No long er eligible based on patient's age to complete this topic IPV Vaccines Aged Out No longer eligi ble based on patient's age to complete this topic MMR Vaccines Aged Out No longer eligi ble based on patient's age to complete this topic Meningococcal ACWY Vaccine Aged Out N o longer eligible based on patient's age to complete this topic Meningococcal B Vaccine Aged Out No l onger eligible based on patient's age to complete this topic Pneumococcal Vaccine: Pediatrics (0 to 5 Years) and At-Risk Patients (6 to 64 Years) Aged Out No longer eligible based on patient's age to complete this topic RSV Immunization Patients Under 20 months Aged Out No longer eligible based on patient's age to complete this topic Varicella Vaccines Aged Out No longer eligible based on patient's age to complete this topic Procedures Procedure Name Priority Date/Time Associated Diagnosis Comments SST - GOLD Routine 09/03/2024 7:00 AM EST Irritable bowel syndrome with constipation Constipation, unspecified Personal history of colon polyps, unspecified Other allergic rhinitis Other specified counseling Encounter for general adult medical examination with abnormal findings VITAMIN D 25 HYDROXY Routine 09/03/2024 7:00 AM EST Irritable bowel syndrome with constipation Constipation, unspecified Personal history of colon polyps, unspecified Other allergic rhinitis Other specified counseling Encounter for general adult medical examination with abnormal findings VITAMIN B12 AND FOLATE Routine 7:00 AM EST Irritable bowel syndrome with constipation Constipation, unspecified Personal history of colon polyps, unspecified Other allergic rhinitis Other specified counseling Encounter for general adult medical examination with abnormal findings LIPID PANEL WITH REFLEX TO DIRECT LDL Routine 09/03/2024 7:00 AM EST Irritable bowel syndrome with constipation Constipation, unspecified Personal history of colon polyps, unspecified Other allergic rhinitis Other specified counseling Encounter for general adult medical examination with abnormal findings ASPARTATE AMINOTRANSFERASE Routine 09/03/2024 7:00 AM EST Irritable bowel syndrome with constipation Constipation, unspecified Personal history of colon polyps, unspecified Other allergic rhinitis Other specified counseling Encounter for general adult medical examination with abnormal findings BASIC METABOLIC PANEL Routine 09/03/2024 7:00 AM EST Irritable bowel syndrome with constipation Constipation, unspecified Personal history of colon polyps, unspecified Other allergic rhinitis Other specified counseling Encounter for general adult medical examination with abnormal findings ALANINE AMINOTRANSFERASE Routine 025 7:00 AM EST Irritable bowel syndrome with constipation Constipation, unspecified Personal history of colon polyps, unspecified Other allergic rhinitis Other specified counseling Encounter for general adult medical examination with abnormal findings MER SCREENING DIGITAL Routine 01/27/2024 10:34 AM EDT Encounter for screening mammogram for malignant neoplasm of breast from Last 3 Months or Most Recently Relevant to Health Maintenance Results * Vitamin B12 and folate (09/03/2024 7:00 AM EST) Pathologist [facility] Vitamin B-12 575 250 - 900 pcg/mL LAB CHEMISTRY METHOD 09/03/2024 8:33 AM [facility] Folate 9.7 2.8 - 17.0 ng/ml LAB CHEMISTRY METHOD 09/03/2024 8:33 AM [facility] Blood Venous blood specimen / Unknown 09/03/2024 7:00 AM EST 09/03/2024 7:27 AM EST us Millie Gonzalez MD LAB BLOOD ORDERABLES Final Result [facility] [address] [place] [address], [place] [phone] * SST tube (09/03/2024 7:00 AM EST) [facility] Extra Tube Hold for add-ons. 09/03/2024 9:01 AM [facility] Comment:Auto resulted. Blood Venous blood specimen / Unknown 09/03/2024 7:00 AM EST 09/03/2024 7:27 AM EST us Millie Gonzalez MD LAB BLOOD ORDERABLES Final Result [facility] [address] [place] [address], [place] [phone] * Lipid panel with reflex to direct LDL (09/03/2024 7:00 AM EST) [facility] Cholesterol 168 0 - 200 mg/dL LAB CHEMISTRY METHOD 09/03/2024 8:11 AM [facility] Triglycerides 54 0 - 150 mg/dL LAB CHEMISTRY METHOD 09/03/2024 8:11 AM [facility] HDL 77 >=40 mg/dL LAB CHEMISTRY METHOD 09/03/2024 8:11 AM [facility] LDL Calculated 80 0 - 100 mg/dL LAB CHEMISTRY METHOD 09/03/2024 8:11 AM [facility] VLDL Cholesterol Nigel 10.8 mg/dL LAB CHEMISTRY METHOD 09/03/2024 8:11 AM [facility] Non HDL Chol. (LDL+VLDL) 91 <145 mg/dL LAB CHEMISTRY METHOD 09/03/2024 8:11 AM [facility] Chol/HDL Ratio 2.2 0.0 - 4.4 LAB CHEMISTRY METHOD 09/03/2024 8:11 AM [facility] Blood Venous blood specimen / Unknown 09/03/2024 7:00 AM EST 09/03/2024 7:27 AM EST Millie Gonzalez MD LAB BLOOD ORDERABLES Final Result Performing Organization Address City/[facility]/ZIP Co de Phone Number [facility] [address] [place] [address], [place] [phone] * Vitamin D 25 hydroxy (09/03/2024 7:00 AM EST) Pathologist [facility] Vit D, 25-Hydroxy 34.8 30.0 - 80.0 ng/mL LAB CHEMISTRY METHOD 09/03/2024 9:07 AM [facility] Blood Venous blood specimen / Unknown 09/03/2024 7:00 AM EST 09/03/2024 7:27 AM EST Millie Gonzalez MD LAB BLOOD ORDERABLES Final Result [facility] [address] [place] [address], [place] [phone] * Alanine aminotransferase (09/03/2024 7:00 AM EST) Pathologist [facility] ALT (SGPT) 18 10 - 60 unit/L LAB CHEMISTRY METHOD 09/03/2024 8:11 AM [facility] Blood Venous blood specimen / Unknown 09/03/2024 7:00 AM EST 09/03/2024 7:27 AM EST Millie Gonzalez MD LAB BLOOD ORDERABLES Final Result [facility] [address] [place] [address], [place] [phone] * Aspartate aminotransferase (09/03/2024 7:00 AM EST) AST (SGOT) 12 10 - 42 unit/L LAB CHEMISTRY METHOD 09/03/2024 8:11 AM [facility] Blood Venous blood specimen / Unknown 09/03/2024 7:00 AM EST 09/03/2024 7:27 AM EST Millie Gonzalez MD LAB BLOOD ORDERABLES Final Result [facility] [address] [place] [address], [place] [phone] * Basic metabolic panel (09/03/2024 7:00 AM EST) Sodium 140 133 - 145 mmol/L LAB CHEMISTRY METHOD 09/03/2024 8:11 AM [facility] Potassium 4.2 3.5 - 5.5 mmol/L LAB CHEMISTRY METHOD 09/03/2024 8:11 AM [facility] Chloride 107 96 - 110 mmol/L LAB CHEMISTRY METHOD 09/03/2024 8:11 AM [facility] CO2 27 21 - 32 mmol/L LAB CHEMISTRY METHOD 09/03/2024 8:11 AM [facility] Anion Gap 6 3 - 11 LAB CHEMISTRY METHOD 09/03/2024 8:11 AM [facility] Glucose 87 70 - 100 mg/dL LAB CHEMISTRY METHOD 09/03/2024 8:11 AM [facility] BUN 16 5 - 25 mg/dL LAB CHEMISTRY METHOD 09/03/2024 8:11 AM [facility] Creatinine 0.61 0.50 - 1.10 mg/dL LAB CHEMISTRY METHOD 09/03/2024 8:11 AM [facility] eGFR 116 >=60 mL/min/1. 73m2 LAB CHEMISTRY METHOD 09/03/2024 8:11 AM [facility] Comment:Calculation based on the??Chronic Kidney Disease Epidemiology Collaboration (CKD-EPI) equation refit??without adjustment for race. BUN/Creatinine Ratio 26.2 LAB CHEMISTRY METHOD 09/03/2024 8:11 AM [facility] Calcium 9.2 8.5 - 10.5 mg/dL LAB CHEMISTRY METHOD 09/03/2024 8:11 AM [facility] Blood Venous blood specimen / Unknown 09/03/2024 7:00 AM EST 09/03/2024 7:27 AM EST Millie Gonzalez MD LAB BLOOD ORDERABLES Final Result [facility] [address] [place] [address], * MER SCREENING DIGITAL (01/27/2024 10:34 AM EDT) Anatomical Region Laterality Modality Mammography 01/27/2024 7:25 AM EDT Narrative 01/27/2024 10:34 AM EDT [facility] Diagnostic Imaging Department [address] [place] [address] Patient: ??JENN CANTU ?/Age/Sex: 1985 - 39 - F Unit#: ??[id number] ? Location/Status: ??SPDIMAM/REG CLI ? Mnemonic/Ordering Site: ??DIGSC/SPMAM Ordering Physician: ??DONI KABA MD [facility] Screening Digital - 01/27/24 - 0750 Report Status:Signed EXAM: [facility] Screening Digital EXAM DATE AND TIME: 01/27/2024 7:51 AM HISTORY: ??Annual screening COMPARISON: ??04/07/2020 TECHNIQUE: Bilateral digital breast tomosynthesis was performed in the CC and MLO projections. Computer aided detection with [employer] 7.2-H and [employer] 3D 3.1 was employed. TISSUE DENSITY: c. The breasts are heterogeneously dense, which may obscure small masses. FINDINGS: No suspicious masses, grouped microcalcifications, or areas of architectural distortion are seen. The skin and vascularity are unremarkable. IMPRESSION: Stable mammographic appearance of the breasts. ??No evidence of malignancy is seen. A negative mammogram in the presence of a clinically suspicious palpable abnormality does not preclude the possibility of malignancy or alter the indications for biopsy. BI-RADS: ??Category 1: Negative RECOMMENDATION(S): 1: Routine screening mammogram BILATERAL in 1 year. Dictating Physician: ??МАРИНА STUBBS MD Electronically Signed by: ??МАРИНА STUBBS MD Dic Date/Time: ??01/27/24 1031 Sign date/Time: ??01/27/24 1034 Procedure Note Марина Stubbs MD - 04/22/2024 [facility] Diagnostic Imaging Department [address] [place] [id number] Patient: NIVIAJENN /Age/Sex: 1985 - 39 - F Unit#: [id number] Location/Status: SPDIMAM/REG CLI Mnemonic/Ordering Site: [facility] Ordering Physician: DONI KABA MD [facility] Screening Digital - 01/27/24 - 0750 Report Status:Signed EXAM: [facility] Screening Digital EXAM DATE AND TIME: 01/27/2024 7:51 AM HISTORY: Annual screening COMPARISON: 04/07/2020 TECHNIQUE: Bilateral digital breast tomosynthesis was performed in the CCand MLO projections. Computer aided detection with [employer] 7[employer]H and[employer] 3D 3.1 was employed. TISSUE DENSITY: c. The breasts are heterogeneously dense, which mayobscure small masses. FINDINGS: No suspicious masses, grouped microcalcifications, or areas ofarchitectural distortion are seen. The skin and vascularity are unremarkable. IMPRESSION: Stable mammographic appearance of the breasts. No evidence of malignancyis seen. A negative mammogram in the presence of a clinically suspicious palpable abnormality does not preclude the possibility of malignancy or alter the indications for biopsy. BI-RADS: Category 1: Negative RECOMMENDATION(S): 1: Routine screening mammogram BILATERAL in 1 year. Dictating Physician: МАРИНА STUBBS MD Electronically Signed by: МАРИНА STUBBS MD Dic Date/Time: 01/27/24 1031 Sign date/Time: 01/27/24 1034 Doni Kaba MD IMG BI PROCEDURES Final Result from Last 3 Months or Most Recently Relevant to Health Maintenance Insurance [employer] Care Teams Pumping Supervisor Relationship Specialty Start Date End Date Millie Gonzalez MD [address] [place] [address] PCP - General Internal Medicine 09/03/24
--- OUTSIDE RECORDS SUMMARY | 2024-10-15 08:02 | XMS_ITS | Encounter Summary ---
Author Organization [facility] Address [address] [place] [address] Care Team Providers Care Canine Deputy Name Role Phone Millie Gonzalez MD Primary Care Provider [phone] Encounter Details Date Type Department Care Team (Late st Contact Info) Description 09/03/2024 Lab Requisition [facility] - Main Lab [address] [facility] [place] [address] Millie Gonzalez MD [address] [place] [place] [address] Irritable bowel syndrome with constipation; Constipation, unspecified; Personal history of colon polyps, unspecified; Other allergic rhinitis; Other specified counseling; Encounter for general adult medical examination with abnormal findings Social History Tobacco Use Types Packs/Day Years Used Date Smoking Tobacco: Never Assessed Comments Unknown Sex and Gender Information Value Date Recorded Sex Assigned at Not on file Legal Sex Female 6:42 PM EST Gender Identity Not on file Sexual Orientation Not on file documented as of this encounter Plan of Treatment Not on file documented as of this encounter Procedures Procedure Name Priority Date/Time Associated Diagnosis Comments VITAMIN B12 AND FOLATE Routine 7:00 AM EST Irritable bowel syndrome with constipation Constipation, unspecified Personal history of colon polyps, unspecified Other allergic rhinitis Other specified counseling Encounter for general adult medical examination with abnormal findings SST - GOLD Routine 09/03/2024 7:00 AM [...] general adult medical examination with abnormal findings documented in this encounter Results * SST tube (09/03/2024 7:00 AM EST) Extra Tube Hold for add-ons. 09/03/2024 9:01 AM EST [facility] Comment:Auto resulted. Blood Venous blood specimen / Unknown 09/03/2024 7:00 AM EST 09/03/2024 7:27 AM EST us Millie Gonzalez MD LAB BLOOD ORDERABLES Final Result [facility] [address] [place] [address], [place] [phone] * Vitamin D 25 hydroxy (09/03/2024 7:00 AM EST) Pathologist [facility] Vit D, 25-Hydroxy 34.8 30.0 - 80.0 ng/mL LAB CHEMISTRY METHOD 09/03/2024 9:07 AM EST [facility] Blood Venous blood specimen / Unknown 09/03/2024 7:00 AM EST 09/03/2024 7:27 AM EST Millie Gonzalez MD LAB BLOOD ORDERABLES Final Result [facility] [address] [place] [address], [place] [phone] * Vitamin B12 and folate (09/03/2024 7:00 AM EST) [facility] Vitamin B-12 575 250 - 900 pcg/mL LAB CHEMISTRY METHOD 09/03/2024 8:[address] [facility] Folate 9.7 2.8 - 17.0 ng/ml LAB CHEMISTRY METHOD 09/03/2024 8:[address] [facility] Blood Venous blood specimen / Unknown 09/03/2024 7:00 AM EST 09/03/2024 7:27 AM EST Millie Gonzalez MD LAB BLOOD ORDERABLES Final Result [facility] [address] [place] [address], [place] [phone] * Lipid panel with reflex to direct LDL (09/03/2024 7:00 AM EST) [facility] Cholesterol 168 0 - 200 mg/dL LAB CHEMISTRY METHOD 09/03/2024 8:11 AM EST [facility] Triglycerides 54 0 - 150 mg/dL LAB CHEMISTRY METHOD 09/03/2024 8:[address] [facility] HDL 77 >=40 mg/dL LAB CHEMISTRY METHOD 09/03/2024 8:[address] [facility] LDL Calculated 80 0 - 100 mg/dL LAB CHEMISTRY METHOD 09/03/2024 8:[address] [facility] VLDL Cholesterol Nigel 10.8 mg/dL LAB CHEMISTRY METHOD 09/03/2024 8:[address] [facility] Non HDL Chol. (LDL+VLDL) 91 <145 mg/dL LAB CHEMISTRY METHOD 09/03/2024 8:[address] [facility] Chol/HDL Ratio 2.2 0.0 - 4.4 LAB CHEMISTRY METHOD 09/03/2024 8:[address] [facility] Blood Venous blood specimen / Unknown 09/03/2024 7:00 AM EST 09/03/2024 7:27 AM EST us Millie Gonzalez MD LAB BLOOD ORDERABLES Final Result [facility] [address] [place] [address], [place] [phone] * Aspartate aminotransferase (09/03/2024 7:00 AM EST) AST (SGOT) 12 10 - 42 unit/L LAB CHEMISTRY METHOD 09/03/2024 8:[address] [facility] Blood Venous blood specimen / Unknown 09/03/2024 7:00 AM EST 09/03/2024 7:27 AM EST us Millie Gonzalez MD LAB BLOOD ORDERABLES Final Result [facility] [address] [place] [address], [place] [phone] * Basic metabolic panel (09/03/2024 7:00 AM EST) Sodium 140 133 - 145 mmol/L LAB CHEMISTRY METHOD 09/03/2024 8:[address] [facility] Potassium 4.2 3.5 - 5.5 mmol/L LAB CHEMISTRY METHOD 09/03/2024 8:[address] [facility] Chloride 107 96 - 110 mmol/L LAB CHEMISTRY METHOD 09/03/2024 8:[address] [facility] CO2 27 21 - 32 mmol/L LAB CHEMISTRY METHOD 09/03/2024 8:[address] [facility] Anion Gap 6 3 - 11 LAB CHEMISTRY METHOD 09/03/2024 8:[address] [facility] Glucose 87 70 - 100 mg/dL LAB CHEMISTRY METHOD 09/03/2024 8:[address] [facility] BUN 16 5 - 25 mg/dL LAB CHEMISTRY METHOD 09/03/2024 8:[address] [facility] Creatinine 0.61 0.50 - 1.10 mg/dL LAB CHEMISTRY METHOD 09/03/2024 8:[address] [facility] eGFR 116 >=60 mL/min/1. 73m2 LAB CHEMISTRY METHOD 09/03/2024 8:[address] [facility] Comment:Calculation based on the??Chronic Kidney Disease Epidemiology Collaboration (CKD-EPI) equation refit??without adjustment for race. BUN/Creatinine Ratio 26.2 LAB CHEMISTRY METHOD 09/03/2024 8:[address] [facility] Calcium 9.2 8.5 - 10.5 mg/dL LAB CHEMISTRY METHOD 09/03/2024 8:[address] [facility] Blood Venous blood specimen / Unknown 09/03/2024 7:00 AM EST 09/03/2024 7:27 AM EST us Millie Gonzalez MD LAB BLOOD ORDERABLES Final Result [facility] [address] [place] [address], [place] [phone] * Alanine aminotransferase (09/03/2024 7:00 AM EST) ALT (SGPT) 18 10 - 60 unit/L LAB CHEMISTRY METHOD 09/03/2024 8:11 AM EST [facility] Blood Venous blood specimen / Unknown 09/03/2024 7:00 AM EST 09/03/2024 7:27 AM EST us Millie Gonzalez MD LAB BLOOD ORDERABLES Final Result [facility] [address] [place] [address], [place] [phone] documented in this encounter Visit Diagnoses Diagnosis Irritable bowel syndrome with constipation Irritable bowel syndrome Constipation, unspecified Personal history of colon polyps, unspecified Other allergic rhinitis Other specified counseling Encounter for general adult medical examination with abnormal findings documented in this encounter Care Teams Canine Deputy Relationship Specialty Start Date End Date Millie Gonzalez MD [address] [place] [address] PCP - General Internal Medicine 09/03/24 documented as of this encounter
--- NOTE | 2024-10-15 08:14 | A.OFFPC_ITS ---
Vital Signs 10/15/24 08:15 Height 5 ft 4 in Weight 142 lb BMI 24.4 BP 112/64 Blood Pressure Location Lt brachial Position Sitting Respiration 16 Pulse 81 Pulse Source Pulse Oximeter Temp 97.4 F Temp Source Oral Pulse Oximetry (%) 99 Oxygen Delivery Method Room Air Intake Visit Reasons: Motion Sickness Intake Note: Pt is today c/o consent motion sickness Allergies Blue #1 Dye Allergy (Unknown, Uncoded 10/15/24 08:44) rash lanolin Allergy (Unknown, Uncoded 10/15/24 08:44) rash Medication List - Last Reconciled 10/15/24 by Millie Gonzalez MD cetirizine (Zyrtec) 10 mg PO DAILY PRN cholecalciferol (vitamin D3) 50 mcg PO DAILY cranberry 500 mg PO BID docusate sodium (Colace) 100 mg PO DAILY levonorgestrel (Mirena) intrauterine linaclotide (Linzess) 290 mcg PO DAILY magnesium oxide 500 mg PO DAILY montelukast 10 mg PO DAILY Saccharomyces boulardii (Daily Probiotic (S. boulardii)) 250 mg PO BID Tobacco use date assessed: 10/15/24 Dental Screening Dental Screen Date: 10/15/24 Did you have a dental visit in the last 12 months?: Yes Did you have a dental problem in the last 6 months where you did not have access to dental care?: No Was dental information given to patient?: Patient has dentist HPI Motion Sickness HPI Details 39-year-old lady here today complaining of intermittent episodes of positional lightheadedness, usually when straightening up after bending down or when quickly getting up from a lying or sitting position, which started approximately several weeks ago. Denies any history of trauma. Report occasional sudden loss of vision lasting for several seconds , accompanying episodes. Denies any chest pain or headache, no shortness of breath, no palpitations, no nausea vomiting reported. [facility] Medical History (Updated 10/15/24 @ 08:55 by Millie Gonzalez MD) Vertigo Positional lightheadedness Amaurosis fugax Dry eye syndrome Environmental and seasonal allergies History of adenomatous polyp of colon Irritable bowel syndrome with constipation Constipation Surgical History Hx of colonoscopy History of cystoscopy Hx of inguinal herniorrhaphy Family History Paternal Grandmother Breast cancer Paternal Aunt Breast cancer, Onset Age: 50 Maternal Aunt Breast cancer Sister Breast cancer, Onset Age: 31 Social History Housing: House Patient Tobacco Use Status: Never used Tobacco e-Cigarette/Vaping Use: Never Used service: No Current occupational status: employed Cognitive needs: No Hearing needs: No Vision needs: Yes Female Reproductive History Menstrual Age of Menarche: 12 Questionnaire PHQ-9 Over the last 2 weeks, how often have you been bothered by any of the following problems? 1. Little interest or pleasure in doing things: not at all 2. Feeling down, depressed, or hopeless: not at all 3. Trouble falling or staying asleep, or sleeping too much: not at all 4. Feeling tired or having little energy: not at all 5. Poor appetite or overeating: not at all 6. Feeling bad about yourself - or that you are a failure or have let yourself or your family down: not at all 7. Trouble concentrating on things, such as reading the newspaper or watching television: not at all 8. Moving or speaking so slowly that other people could have noticed. Or the opposite - being so fidgety or restless that you have been moving around a lot more than usual: not at all 9. Thoughts that you would be better off or of hurting yourself in some way: not at all Total score: 0 Depression Screening Interpretation: Negative Depression Screening Done: Yes 34018 - PHQ-9 Billing: Yes Source: Developed by Drs. Zion Nickerson, Samantha Roberts, Dustin Heaton and colleagues, with an educational miguelangel from [employer]. Thrive Questionnaire Date Thrive assessed: 10/15/24 I am a: Patient What is your living situation today?: I have a steady place to live Within the past 12 months, did the food you bought not last and you didn't have the money to get more?: Never true Within the past 12 months, did you worry whether your food would run out before you got money to buy more?: Never true Do you have trouble paying for medicines?: No Do you have trouble getting transportation to medical appointments?: No Do you have trouble paying your heating and electricity bill?: No Do you have trouble taking care of your child, family member or friend?: No Do you have trouble with day-to-day activities such as bathing, preparing meals, shopping, managing finances, etc.?: No Are you currently unemployed and looking for a job?: No Are you interested in more education?: No Please select the resources that you would like help with: None Currently or been in a relationship where the following occur: No concerns reported THRIVE Score: 0 AUDIT C Alcohol Use Questionnaire (AUDIT-C) 1. How often do you have a drink containing alcohol?: Never Total Score: 0 ANTONI-7 AMB Questionnaire ANTONI-7 Date ANTONI - 7 assessed: 10/15/24 Feeling nervous, anxious, or on edge: 0 = Not at all Not being able to stop or control worryin = Not at all Worrying too much about different things: 0 = Not at all Trouble relaxin = Not at all Being so restless that it is hard to sit still: 0 = Not at all Becoming easily annoyed or irritable: 0 = Not at all Feeling afraid as if something awful might happen: 0 = Not at all Total ANTONI-7 score (0-4 normal; 5-9 mild; 10-14 moderate; 15-21 severe): 0 Source: Developed by Drs. Zion Nickerson, Samantha Roberts, Dustin Heaton and colleagues, with an educational miguelangel from [employer]. ANTONI-7 Assessment Billing ANTONI-7 Assessment Tool: ANTONI-7 Assessment 85591 Review of Systems Const All systems reviewed & are unremarkable except as noted in HPI and below Physical exam (Primary Care) Vital Signs: Last Vital Signs Temp 97.4 F 10/15/24 08:15 Pulse 81 10/15/24 08:15 Resp 16 10/15/24 08:15 BP 112/64 10/15/24 08:15 Pulse Ox 99 10/15/24 08:15 Oxygen Delivery Method Room Air 10/15/24 08:15 BMI result Body Mass Index 24.4 Tobacco/Smoking Status: Tobacco use Status Tobacco use date assessed 10/15/24 10/15/24 08:20 Patient Tobacco Use Status Never used Tobacco 10/15/24 08:20 e-Cigarette/Vaping Use Never Used 10/15/24 08:20 PHQ-9: PHQ-9 Score PHQ-9: Total score 0 10/15/24 09:12 Depression Screening Interpretation: Negative Thrive Assessment: Date of Thrive Assessment Date Thrive assessed 10/15/24 10/15/24 08:20 Currently or been in a relationship where the following occur: No concerns reported Const Other: Alert oriented x3 no acute distress noted, ambulatory normal gait Nutritional Appearance: average body habitus Orientation/consciousness: patient oriented x3 HENMT Head: Yes normocephalic Ears: EAC's normal General nose exam: Normal external nose present Face and sinus: Yes face symmetric Mouth: Normal oral and palatal mucosa present, oropharynx normal and moist mucous membranes Eyes General: appearance normal, both eyes and all related structures Conjunctivae: conjunctivae normal Pupils: Equal, round and reactive pupils present EOM: EOMs intact bilaterally and No Nystagmus present Neck Neck: Yes full ROM, Yes no lymphadenopathy, Yes no meningeal signs and Yes supple Thyroid: Thyroid normal Resp Auscultation: clear to auscultation bilaterally Cardio Rate: regular rate Rhythm: regular rhythm Heart sounds: S1 normal heart sound present and S2 normal heart sound present Bruits: no abdominal aortic bruits and no carotid bruits GI Inspection: Yes normal to inspection Palpation (GI): No Abdominal aortic bruit present, Soft to palpation, nontender, no guarding, no hernias and no masses Auscultation: normal bowel sounds Other: Currently followed by Dr. Kaba for her routine Pap and pelvic exam, up-to-date General: Yes no CVA tenderness Back/Spine/Pelvis Back: no CVA tenderness and No back tenderness Skin Other: sees Dr Mascorro for routine skin exam General skin exam: no rashes or lesions noted Neuro General: patient oriented x3, gait normal, tone normal, moves all extremities, Normal light touch and pain sensation, no meningeal signs, no focal motor deficits and CN's II-XI intact bilaterally Cranial nerves: Yes Equal, round and reactive pupils present and No Nystagmus present Gait exam (Neuro): Normal gait present Extrem General: Yes full ROM, Yes no joint enlargement, Yes no clubbing, cyanosis or edema, Yes no calf tenderness and Yes normal gait Psych Appearance: grossly normal and well kempt Mental Status: mental status grossly normal Speech and movement: Normal speech and movement present Affect: normal affect Thought process: Normal thought process present Coding Level of Care Code Est Pt Level 4 (11308) Diagnoses Amaurosis fugax G45.3 Positional lightheadedness R42 Additional Codes PHQ-9 - 75902 - PHQ-9 Billing: Yes ([id number]) ANTONI-7 Assessment Billing - ANTONI-7 Assessment Tool: ANTONI-7 Assessment 95770 ([id number]) Assessment & Plan Assessment & Plan (1) Amaurosis fugax: Code(s): G45.3 - Amaurosis fugax Category: Medical Plan: , check CBC and TSH with free T4, latest labs drawn at [facility] showed normal BMP, lipids, vitamin B12 and folic acid and vitamin-D. Stat carotid ultrasound bilateral ordered (2) Positional lightheadedness: Code(s): R42 - Dizziness and giddiness Category: Medical Plan: Referred to vestibular rehab for evaluation and management of possible benign positional vertigo. 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 Orders: Orders US carotid duplex BI 10/15/24 G45.3 - Amaurosis fugax, R42 - Dizziness and giddiness PT Evaluation and Treatment 10/15/24 H81.10 - Benign paroxysmal vertigo, unspecified ear Complete Blood Count Auto Diff 10/15/24 G45.3 - Amaurosis fugax, H04.123 - Dry eye syndrome of bilateral lacrimal glands, R42 - Dizziness and giddiness TSH reflex Free T4 10/15/24 G45.3 - Amaurosis fugax, H04.123 - Dry eye syndrome of bilateral lacrimal glands, R42 - Dizziness and giddiness
[2024-10-15 08:15] VITALS: BP 112/64; PULSE 81; RESP 16; TEMP 36.3; O2SAT 99; BMI 24.4
== END 2024-10-15 11:56 | disposition home or self-care (01) ==
LOC: HO.HMCC 07:59
PROVIDERS: PCP Internal Medicine; Visit Provider Internal Medicine
DX: G45.3 Amaurosis fugax (principal); R42 Dizziness and giddiness

== ENCOUNTER → 2024-10-15 07:58 | Outpatient (BNVA) | payer OTHER, SELFPAY | PROVIDERS: PCP Internal Medicine; Visit Provider Internal Medicine ==